=== PATIENT | female | born 1980 | race Caucasian/White ===

== ENCOUNTER 2021-02-08 05:29 | Emergency (ER) | payer OTHER ==
[~2021-02-08] VITALS: Ht 167.6 cm; Wt 77.1 kg
[2021-02-08 07:47] VITALS: BP 120/88
[2021-02-08] MEDS ORDERED: diphenhdrAMINE HCL 25 MG CAP PO ONE (08:00)
== END 2021-02-08 08:54 | disposition home or self-care (01) ==
LOC: ER 05:29
DX: B86 Scabies (principal)